=== PATIENT | male | born 1980 | race Caucasian/White ===

== ENCOUNTER 2017-04-12 18:42 | Emergency (ER) | payer OTHER ==
[~2017-04-12] VITALS: Ht 175.3 cm; Wt 88.0 kg
[~2017-04-12 18:42] MED LIST: ACET-1256 PO
[2017-04-12 18:50] VITALS: BP 137/79; PULSE 80; TEMP 36.6; O2SAT 99; Ht 175.3 cm; Wt 88.0 kg
[2017-04-12] MEDS ORDERED: CEPH500C PO (19:06)
--- NOTE | 2017-04-12 19:26 | EMERGENCY ROOM VISIT NOTE ---
History First contact with patient: 18:52 Chief Complaint: LACERATION/CUT (SUT/DERMABOND) Stated Complaint: TORE OPEN WOUND IN BACK, HAD MOLE REMOVED 3WKS AGO Nursing Triage Summary: pt reports 3 weeks ago had 2 moles removed from back . 1 has not healed completely and cont to drain serous sang drainage. denies increased pain History of Present Illness The patient is a 36 year old male who presents to the Emergency Room with complaints of an open wound on his back. The patient reports that he had two moles removed from his back 3 weeks ago at the [facility] in [place]. The patient reports that most of the sutures were removed in one week, and had the remaining single sutures removed from both wounds 12 days ago. The patient reports that the wound that is currently open has continued to have serosanguineous drainage since that time. The patient reports that he was scratching his back today because it was itchy, and his noticed that there was a hole. The patient reports that it has continued to drain, but has not noticed any purulent drainage. He has not noticed any redness around the site, and denies any pain. Review of Systems 10 system review was performed and was negative except for pertinent positives and negatives as indicated in history of present illness Past Medical/Surgical History Medical Problems: (1) Lumbago Surgical Problems: (1) History of cholecystectomy Family History No significant family history Social History Smoking Status: Never Smoker Alcohol Use: none Marital Status: Housing Status: lives with family Occupation Status: employed Current/Historical Medications Scheduled Cephalexin Monohydrate (Keflex), 500 MG PO QID Scheduled PRN Acetaminophen (Tylenol), 1,000 MG PO Q6H PRN for Headache or Pain Physical Exam Vital Signs Date Time Temp Pulse Resp B/P (MAP) Pulse Ox O2 Delivery O2 Flow Rate FiO2 04/12/17 18:50 36.6 80 20 137/79 99 Room Air Physical Exam CONSTITUTIONAL: Healthy and well nourished. Alert and oriented X 3 with positive affect. HEENT: Normocephalic, atraumatic. Pupils equal, round and reactive. NECK: Full active range of motion without discomfort. RESPIRATORY: Clear to auscultation bilaterally with no wheezing, crackles, rhonchi or stridor. CARDIOVASCULAR: Regular rate and rhythm with no murmurs, rubs or gallops. GASTROINTESTINAL: Bowel sounds present in all quadrants. Soft and nontender to palpation. MUSCULOSKELETAL: Patient has no tenderness to palpation through the lumbar paraspinous muscles or central thoracolumbar spine. INTEGUMENTARY: Examination shows a small 2 mm diameter wound opening over the left upper lumbar paraspinous region. There is no surrounding erythema or induration. No purulent or serous sanguinous drainage noted with attempted expression. The other surgical incision site on the right lumbar region is healing well. NEUROLOGIC: No focal neurologic deficits noted. Medical Decision & Procedures ED Course Patient history and physical exam were performed. Nurse's notes were reviewed. Vital signs were reviewed and were normal. Mentation shows a dehisced surgical wound that should otherwise heal well. The patient was advised that there does not appear to be any infection at the site I explained that attempting to close the wound with a suture is not recommended as it likely would not heal well anyway. Plus if there is any risk for internal infection, this can actually worsen the condition. I suggested allowing the wound to heal by secondary intention. The patient was in agreement. He was encouraged to keep the wound clean and covered. In case he does start to develop redness or purulent drainage, he was provided a written prescription for Keflex. The patient was instructed to follow-up with his electronic data processing auditor if the wound is not improving within the next week. The patient was happy with plan of care, voiced understanding of all discharge instructions, and denied any pain at the time of discharge. Medical Decision Medication Reconcilliation Current Medication List: was personally reviewed by me Blood Pressure Screening Patient's blood pressure: Normal blood pressure Impression Primary Impression: Surgical wound dehiscence Departure Information Dispostion Home / Self-Care Prescriptions Cephalexin Monohydrate (Keflex) 500 Mg Cap 500 MG PO QID for 7 Days, #28 CAP Prov: Daryl Christianson PA 04/12/17 Forms HOME CARE DOCUMENTATION FORM, IMPORTANT VISIT INFORMATION Patient Instructions My [facility] Additional Instructions The wound should heal from the inside out. Keep wound covered with an antibiotic ointment and dressing. If redness starts to develop at the opening or around the surgical site, start Keflex antibiotics as prescribed. Follow-up with your electronic data processing auditor if you do not notice any significant healing within the next week, or if redness develops or the wound gets larger. Problem Qualifiers Primary Impression: Surgical wound dehiscence Encounter type: initial encounter Qualified Codes: T81.31XA - Disruption of external operation (surgical) wound, not elsewhere classified, initial encounter
== END 2017-04-12 19:11 | disposition home or self-care (01) ==
LOC: C.EDB 18:43 → C.EDD 19:11
DX: T81.31XA Disruption of external operation (surgical) wound, not elsewhere classified, initial encounter (principal); Y83.8 Other surgical procedures as the cause of abnormal reaction of the patient, or of later complication, without mention of misadventure at the time of the procedure

== ENCOUNTER 2021-08-16 17:29 | Observation (INO) ==
--- NOTE | 2021-08-16 18:12 | Emergency Department Note ---
Impression & Plan Acute appendicitis, Abdominal pain, RLQ ED Provider Note NAME: OBED IVAN AGE: 40 SEX: M : 1980 ARRIVES VIA: Walk-In INFORMANT: Patient, ED PROVIDER(S): Chester Trujillo MD Chief Complaint: Abdominal pain HPI: Patient presents with concern for right lower quadrant pain which began yesterday and seemed to gradually subside but then returned today and got progressively worse throughout the day. The patient denies any fevers chills chest pains or shortness of breath. The patient denies any nausea or vomiting. No hematuria dysuria, hematochezia and the patient has had a recent bowel movement. Patient has had a prior cholecystectomy but no history of kidney stones or appendectomy. Patient did not take anything for symptoms at home. Patient denies any falls or trauma. Patient denies any fevers or chills. No recent heavy lifting twisting or turning. ROS: See HPI for pertinent positives and negatives. A total of 10 systems were reviewed and otherwise negative. Past medical history: See below Surgical history: See below Social history: See below Physical Exam: GENERAL: NAD, wearing a mask, non-toxic. EYE EXAM: Normal conjunctiva. PERRL, no anisocoria and EOM's grossly intact w/o pain. NECK: Supple, no nuchal rigidity, no adenopathy, non-tender. No signs of meningismus. LUNGS: Clear to auscultation. Normal chest wall mechanics. HEART: NSR, no MRG. ABDOMEN: Abdomen soft, right lower abdominal pain, negative obturators and psoas, normo-active bowel sounds, no masses, no rebound or guarding. BACK: No CVA TTP. SKIN: No rashes and no bruising. UPPER EXTREMITIES: Upper extremities are grossly normal. LOWER EXTREMITIES: Grossly normal, no edema. NEURO EXAM: A&O x3, cranial nerves II-XII grossly intact, normal speech, moves all 4 extremities on command w/o issue. Differential diagnoses: Appendicitis, testicular torsion, infections, diverticulitis, UTI, obstruction, mesenteric ischemia, aortic pathology, inflammatory bowel disease, renal colic, PUD, pancreatitis, biliary pathology, hernia, volvulus, constipation, as well as other pathologies. Course: Patient was seen and evaluated the bedside. Full history physical exam was performed. Imaging Studies: See Below Cardiac monitoring: An order was placed for continuous cardiac monitoring. The monitor shows a rate of 82 with sinus rhythm. MDM: Patient was seen for right lower quadrant pain. Blood work was obtained along with a CT abdomen pelvis. Patient declined any pain or nausea medication at this time. Patient has a normal white count H&H and platelet count. The patient's kidney function is unremarkable. Urinalysis does show scant blood but no signs of obvious infection. CT abdomen pelvis does show concern for acute early appendicitis. Dr. Rhodes with radiology did call me to inform me of the findings. I did with the on-call general surgeon Dr. Russell. COVID test was ordered along with Mefoxin. Patient was admitted to the general surgery service. Patient was taken to the operating room. Past Med/Surg History Medical History Back pain Surgical History H/O fasciotomy History of cholecystectomy History of wisdom tooth extraction Family History Other No pertinent family history in first degree relatives Social History Smoking Status: Never smoker Hx Substance Use: No Preferred Language: Mohawk Feels Safe at Home: Yes Allergies Allergies Allergy/AdvReac Type Severity Reaction Status Date / Time No Known Allergies Allergy Unverified 08/16/21 20:10 Home Meds Home Medications Medication Instructions Recorded Confirmed No Known Home Medications 08/16/21 08/16/21 Results & Data (ED) Vital Signs Vital Signs - 24 hr 08/16/21 17:35 08/16/21 18:40 08/16/21 19:47 Temperature 36.5 C Temperature Source Temporal Artery Scan Pulse Rate 98 H 84 Pulse Rate [Finger] 85 Respiratory Rate 17 18 18 Respiratory Effort / Characteristics Non-Labored Spontaneous Respiratory Depth Normal Respiratory Pattern Regular Blood Pressure 143/98 H Blood Pressure [Left Arm] 128/81 Blood Pressure Mean 113 Blood Pressure Mean [Left Arm] 96 Blood Pressure Position Sitting Blood Pressure Position [Left Arm] Pulse Oximetry 95 97 99 Oxygen Delivery Method Room Air Room Air Room Air Sepsis Recent Fever Within 48 Hours No Sepsis New/Unexplained Change in Mental Status N/A Sepsis Action Taken by Nursing No Action Required 08/16/21 21:47 Temperature Temperature Source Pulse Rate Pulse Rate [Finger] 82 Respiratory Rate 18 Respiratory Effort / Characteristics Respiratory Depth Respiratory Pattern Blood Pressure Blood Pressure [Left Arm] 143/87 H Blood Pressure Mean Blood Pressure Mean [Left Arm] 105 Blood Pressure Position Blood Pressure Position [Left Arm] Sitting Pulse Oximetry 97 Oxygen Delivery Method Room Air Sepsis Recent Fever Within 48 Hours Sepsis New/Unexplained Change in Mental Status Sepsis Action Taken by Skilled Nursing Medications Current Medication List: was personally reviewed by me Laboratory Data Attestation: I reviewed the patient's lab results. Result diagrams: 08/16/21 18:43 08/16/21 18:43 Lab Results 08/16/21 08/16/21 08/16/21 Range/Units 18:43 18:43 19:00 WBC 9.20 (4.8-10.8) K/uL RBC 5.21 (4.7-6.1) M/uL Hgb 14.7 (14.0-18.0) g/dL Hct 44.2 (42-52) % MCV 84.8 (80-100) fL MCH 28.2 (25-34) pg MCHC 33.3 (32-36) g/dL RDW Std Deviation 39.7 (36.4-46.3) fL RDW Coeff of Ivy 12.8 (11.5-14.5) % Plt Count 318 (130-400) K/uL MPV 10.4 (7.4-10.4) fL Immature Gran % (Auto) 0.3 % Neut % (Auto) 60.4 % Lymph % (Auto) 28.5 % [place] % (Auto) 8.7 % Eos % (Auto) 1.7 % Baso % (Auto) 0.4 % Neut # (Auto) 5.55 (1.4-6.5) K/uL Lymph # (Auto) 2.62 (1.2-3.4) K/uL [place] # (Auto) 0.80 H (0.11-0.59) K/uL Eos # (Auto) 0.16 (0-0.5) K/uL Baso # (Auto) 0.04 (0-0.2) K/uL Immature Gran # (Auto) 0.03 H (0.00-0.02) K/uL Sodium 139 (136-145) mmol/L Potassium 3.7 (3.5-5.1) mmol/L Chloride 105 (98-107) mmol/L Carbon Dioxide 28 (21-32) mmol/L Anion Gap 6 (3-11) BUN 18 (6-23) mg/dl Creatinine 0.98 (0.6-1.4) mg/dl Est Cr Clr Drug Dosing 122.4 ml/min Est GFR ( Amer) 112.9 ml/min Est GFR (Non-Af Amer) 97.4 ml/min BUN/Creatinine Ratio 18.4 (10-20) Glucose 103 H (70-99(Fasting)) mg/dl Calcium 9.2 (8.5-10.1) mg/dl Total Bilirubin 0.2 (0.2-1.0) mg/dl AST 21 (13-39) U/L ALT 27 (7-52) U/L Alkaline Phosphatase 95 (34-104) U/L Total Protein 7.2 (6.0-8.3) gm/dl Albumin 4.1 (3.4-5.0) gm/dl Globulin 3.1 (2.5-4.0) gm/dl Albumin/Globulin Ratio 1.3 (0.9-2) Lipase 46 (11-82) U/L Urine Color Yellow Urine Appearance Clear (Clear) Urine pH 6.5 (4.5-7.5) Ur Specific [place] 1.023 (1.000-1.030) Urine Protein Negative (Negative) Urine Glucose (UA) Negative (Negative) Urine Ketones Negative (Negative) Urine Blood 1+ H (Negative) Urine Nitrite Negative (Negative) Urine Bilirubin Negative (Negative) Urine Urobilinogen Negative (Negative) Ur Leukocyte Esterase Negative (Negative) Urine WBC (Auto) 1-5 (0-5) /hpf Urine RBC (Auto) 5-10 H (0-4) /hpf U Hyaline Cast (Auto) 1-5 (0-5) /lpf U Epithel Cells (Auto) 0-5 (0-5) /lpf Urine Bacteria (Auto) Negative (Negative) SARS-CoV-2, RNA, NAAT (NEGATIVE) 08/16/21 Range/Units 20:51 WBC (4.8-10.8) K/uL RBC (4.7-6.1) M/uL Hgb (14.0-18.0) g/dL Hct (42-52) % MCV (80-100) fL MCH (25-34) pg MCHC (32-36) g/dL RDW Std Deviation (36.4-46.3) fL RDW Coeff of Ivy (11.5-14.5) % Plt Count (130-400) K/uL MPV (7.4-10.4) fL Immature Gran % (Auto) % Neut % (Auto) % Lymph % (Auto) % [place] % (Auto) % Eos % (Auto) % Baso % (Auto) % Neut # (Auto) (1.4-6.5) K/uL Lymph # (Auto) (1.2-3.4) K/uL [place] # (Auto) (0.11-0.59) K/uL Eos # (Auto) (0-0.5) K/uL Baso # (Auto) (0-0.2) K/uL Immature Gran # (Auto) (0.00-0.02) K/uL Sodium (136-145) mmol/L Potassium (3.5-5.1) mmol/L Chloride (98-107) mmol/L Carbon Dioxide (21-32) mmol/L Anion Gap (3-11) BUN (6-23) mg/dl Creatinine (0.6-1.4) mg/dl Est Cr Clr Drug Dosing ml/min Est GFR ( Amer) ml/min Est GFR (Non-Af Amer) ml/min BUN/Creatinine Ratio (10-20) Glucose (70-99(Fasting)) mg/dl Calcium (8.5-10.1) mg/dl Total Bilirubin (0.2-1.0) mg/dl AST (13-39) U/L ALT (7-52) U/L Alkaline Phosphatase (34-104) U/L Total Protein (6.0-8.3) gm/dl Albumin (3.4-5.0) gm/dl Globulin (2.5-4.0) gm/dl Albumin/Globulin Ratio (0.9-2) Lipase (11-82) U/L Urine Color Urine Appearance (Clear) Urine pH (4.5-7.5) Ur Specific [place] (1.000-1.030) Urine Protein (Negative) Urine Glucose (UA) (Negative) Urine Ketones (Negative) Urine Blood (Negative) Urine Nitrite (Negative) Urine Bilirubin (Negative) Urine Urobilinogen (Negative) Ur Leukocyte Esterase (Negative) Urine WBC (Auto) (0-5) /hpf Urine RBC (Auto) (0-4) /hpf U Hyaline Cast (Auto) (0-5) /lpf U Epithel Cells (Auto) (0-5) /lpf Urine Bacteria (Auto) (Negative) SARS-CoV-2, RNA, NAAT NEGATIVE (NEGATIVE) Administered Medications Discontinued Medications Cefoxitin Sodium (Mefoxin) 2,000 mg in 60 mls @ 100 mls/hr IV NOW STA Stop: 08/16/21 20:48 Last Infusion: 08/16/21 20:58 Dose: 0 mls/hr Documented by: [id number] Admin: 08/16/21 20:21 Dose: 100 mls/hr Documented by: [id number] Ioversol (Optiray 320 100ml) 94 ml IV ONCE ONE Stop: 08/16/21 19:53 Last Admin: 08/16/21 19:53 Dose: 94 ml Documented by: [id number] Imaging Data Radiologist's Impression: Abdomen/Pelvis CT 08/16/21 18:31 CT OF THE ABDOMEN AND PELVIS WITH CONTRAST CLINICAL HISTORY: Right lower quadrant abdominal pain. COMPARISON STUDY: None. TECHNIQUE: Following IV administration of 94 mL of Optiray, axial images of the abdomen and pelvis were obtained from the lung bases to the proximal femurs. Images were reviewed in the axial, sagittal, and coronal planes. IV contrast was administered without complication. Automated exposure control was utilized for the study. A dose lowering technique was utilized adhering to the principles of ALARA. CT DOSE: 870.43 mGy.cm FINDINGS: Lung bases are unremarkable. No pneumatosis, free air or portal venous gas is present. There is no biliary ductal dilatation status post cholecystectomy. The liver, spleen, adrenal glands, kidneys and pancreas are unremarkable. There is no peripancreatic infiltration. There is no hydronephrosis. Sensitivity for detection of urinary calculi is diminished given excreted contrast. Mild mesenteric stranding is of doubtful significance. 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 There is no evidence for a bowel obstruction. The appendiceal tip is slightly dilated, measuring 8 mm in caliber. There is trace periappendiceal stranding. Colonic diverticulosis is noted without evidence for acute diverticulitis. There is no lymphadenopathy or ascites. No acute fracture or suspicious lesion within the visualized skeletal structures. Major vasculature is patent. IMPRESSION: Mildly dilated appendiceal tip with trace periappendiceal stranding. The findings are suggestive of early acute appendicitis. Findings discussed with Dr. Trujillo at time of dictation. ACT 112: Negative or not required by law. Electronically signed by: Ruy Rhodes M.D. 08/16/2021 8:16 PM Discharge Plan Visit Data Chief Complaint: Abdominal Pain Stated Complaint: RLQ ABDOMINAL PAIN ED Provider: Chester Trujillo Discharge Problem: Acute appendicitis, Abdominal pain, RLQ Patient Disposition: Admitted As Inpatient Discharge Instructions Interventions: ED Discharge Assessment Last Done: 08/16/21 22:04
[2021-08-16 18:58] LABS: Basophils # (auto) 0.04 K/uL (0-0.2); Basophils % (auto) 0.4 %; Eosinophils # (auto) 0.16 K/uL (0-0.5); Eosinophils % (auto) 1.7 %; Hematocrit (blood only) 44.2 % (42-52); Hemoglobin 14.7 g/dL (14.0-18.0); Immature Granulocytes # (auto) 0.03 K/uL (0.00-0.02); Immature Granulocytes % (auto) 0.3 %; Lymphocytes # (auto) 2.62 K/uL (1.2-3.4); Lymphocytes % (auto) 28.5 %; Mean Corpuscular Hemoglobin 28.2 pg (25-34); Mean Corpuscular Hgb Conc 33.3 g/dL (32-36); Mean Corpuscular Volume 84.8 fL (80-100); Mean Platelet Volume 10.4 fL (7.4-10.4); Monocytes % (auto) 8.7 %; Neutrophils # (auto) 5.55 K/uL (1.4-6.5); Neutrophils % (auto) 60.4 %; Platelet Count 318 K/uL (130-400); RDW Coefficient of Variation 12.8 % (11.5-14.5); RDW Standard Deviation 39.7 fL (36.4-46.3); Red Blood Count 5.21 M/uL (4.7-6.1)
[2021-08-16 19:21] LABS: Appearance Urine Clear (Clear); Bacteria Urine Automated Negative (Negative); Bilirubin Urine Negative (Negative); Blood Urine 1+ (Negative); Color Urine Yellow; Epithelial Cell Urine Auto 0-5 /lpf (0-5); Glucose Urine UA Negative (Negative); Ketones Urine Negative (Negative); Leukocyte Esterase Urine Negative (Negative); Nitrite Urine Negative (Negative); Protein Urine Negative (Negative); Specific Gravity Urine 1.023 (1.000-1.030); Urobilinogen Urine Negative (Negative); pH Urine 6.5 (4.5-7.5)
[2021-08-16 19:28] LABS: Albumin Globulin Ratio 1.3 (0.9-2); Albumin Level 4.1 gm/dl (3.4-5.0); BUN Creatinine Ratio 18.4 (10-20); Bilirubin,Total 0.2 mg/dl (0.2-1.0); Calcium 9.2 mg/dl (8.5-10.1); Creatinine Clr Calc Pharmacy 122.4 ml/min; Est GFR (African American) 112.9 ml/min; Est GFR (Non-African American) 97.4 ml/min; Globulin 3.1 gm/dl (2.5-4.0); Potassium 3.7 mmol/L (3.5-5.1); Total Protein 7.2 gm/dl (6.0-8.3)
[2021-08-16] MEDS ORDERED: OPTIRAY 320 100ml IV ONE (19:52)
[2021-08-16] MEDS ORDERED: cefOXitin 2,000 MG/60 ML BAG IV STA (20:13)
--- NOTE | 2021-08-16 20:19 | CT Scan Report ---
CT OF THE ABDOMEN AND PELVIS WITH CONTRAST CLINICAL HISTORY: Right lower quadrant abdominal pain. COMPARISON STUDY: None. TECHNIQUE: Following IV administration of 94 mL of Optiray, axial images of the abdomen and pelvis we re obtained from the lung bases to the proximal femurs. Images were reviewed in the axial, sagittal, and coronal planes. IV contrast was administered without complication. Automated exposure control wa s utilized for the study. A dose lowering technique was utilized adhering to the principles of ALARA . CT DOSE: 870.43 mGy.cm FINDINGS: Lung bases are unremarkable. No pneumatosis, free air or portal venous gas is present. Ther e is no biliary ductal dilatation status post cholecystectomy. The liver, spleen, adrenal glands, kid neys and pancreas are unremarkable. There is no peripancreatic infiltration. There is no hydronephros is. Sensitivity for detection of urinary calculi is diminished given excreted contrast. Mild mesenter ic stranding is of doubtful significance. 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 There is no evide nce for a bowel obstruction. The appendiceal tip is slightly dilated, measuring 8 mm in caliber. Ther e is trace periappendiceal stranding. Colonic diverticulosis is noted without evidence for acute dive rticulitis. There is no lymphadenopathy or ascites. No acute fracture or suspicious lesion within the visualized skeletal structures. Major vasculature is patent. IMPRESSION: Mildly dilated appendiceal tip with trace periappendiceal stranding. The findings are sug gestive of early acute appendicitis. Findings discussed with Dr. Trujillo at time of dictation. ACT 112: Negative or not required by law. Electronically signed by: Ruy Rhodes M.D. 08/16/2021 8:16 PM
--- NOTE | 2021-08-16 21:29 | History & Physical Report ---
Date of Service August 16, 2021 Assessment & Plan (1) Acute appendicitis: Plan: 40-year-old gentleman presents with acute appendicitis. We discussed the risks and benefits of a laparoscopic appendectomy, possible open. We discussed the postoperative and recovery period as well as restrictions. All his questions were answered, he is agreeable to proceed. We have obtained consent. We will take him to the operating room for laparoscopic appendectomy at the earliest convenience. History of Present Illness Primary Care Provider: [facility] 40-year-old gentleman presents with a 2-day history of right lower quadrant pain. It began towards the middle of his abdomen and radiated down to the right side. It is a dull aching pain punctuated by sharper pain intermittently. He denies nausea or vomiting. He denies changes in bowel habits. He last ate at 2 PM today. He denies fevers or chills. He has had a prior cholecystectomy. He has migraines. He denies chest pain or shortness of breath. White blood cell count is 9. CT scan demonstrates early acute appendicitis. Allergies Allergy/AdvReac Type Severity Reaction Status Date / Time No Known Allergies Allergy Unverified 08/16/21 20:10 Home Medications Medication Instructions Recorded Confirmed Type No Known Home Medications 08/16/21 08/16/21 History Past Med/Surg History Medical History Back pain Surgical History H/O fasciotomy History of cholecystectomy History of wisdom tooth extraction Family History Other No pertinent family history in first degree relatives Social History Smoking Status: Never smoker Hx Substance Use: No Preferred Language: [place] Feels Safe at Home: Yes Review of Systems Review of Systems: All systems reviewed & are unremarkable except as noted in HPI & below Physical Exam Constitutional: WD/WN, vitals as above Neck: trachea midline, no thyromegaly Respiratory: normal respiratory effort; no respiratory distress and no labored breathing Cardiovascular: Rate/Rhythm: regular rate and regular rhythm Gastrointestinal (Abdomen): Inspection/Auscultation: abdomen normal to inspection; abdomen not distended Percussion/Palpation: + abdomen tender (Right lower quadrant) and abdomen soft; no guarding and abdomen not rigid Musculoskeletal: Extremities: no cyanosis and no clubbing Skin: no rashes, warm and dry Psychiatric: A+Ox3, euthymic affect Results & Data Results & Data ([facility]) Vital Signs (Past 12 Hours) Vital Signs Temp Pulse Pulse Resp BP BP Pulse Ox 08/16/21 19:47 85 18 128/81 99 08/16/21 18:40 84 18 97 08/16/21 17:35 36.5 C 98 H 17 143/98 H 95 Laboratory Results 08/16/21 08/16/21 08/16/21 Range/Units 20:51 19:00 18:43 WBC (4.8-10.8) K/uL RBC (4.7-6.1) M/uL Hgb (14.0-18.0) g/dL Hct (42-52) % MCV (80-100) fL MCH (25-34) pg MCHC (32-36) g/dL RDW Std Deviation (36.4-46.3) fL RDW Coeff of Ivy (11.5-14.5) % Plt Count (130-400) K/uL MPV (7.4-10.4) fL Immature Gran % (Auto) % Neut % (Auto) % Lymph % (Auto) % [place] % (Auto) % Eos % (Auto) % Baso % (Auto) % Neut # (Auto) (1.4-6.5) K/uL Lymph # (Auto) (1.2-3.4) K/uL [place] # (Auto) (0.11-0.59) K/uL Eos # (Auto) (0-0.5) K/uL Baso # (Auto) (0-0.2) K/uL Immature Gran # (Auto) (0.00-0.02) K/uL Sodium 139 (136-145) mmol/L Potassium 3.7 (3.5-5.1) mmol/L Chloride 105 (98-107) mmol/L Carbon Dioxide 28 (21-32) mmol/L Anion Gap 6 (3-11) BUN 18 (6-23) mg/dl Creatinine 0.98 (0.6-1.4) mg/dl Est Cr Clr Drug Dosing 122.4 ml/min Est GFR ( Amer) 112.9 ml/min Est GFR (Non-Af Amer) 97.4 ml/min BUN/Creatinine Ratio 18.4 (10-20) Glucose 103 H (70-99(Fasting)) mg/dl Calcium 9.2 (8.5-10.1) mg/dl Total Bilirubin 0.2 (0.2-1.0) mg/dl AST 21 (13-39) U/L ALT 27 (7-52) U/L Alkaline Phosphatase 95 (34-104) U/L Total Protein 7.2 (6.0-8.3) gm/dl Albumin 4.1 (3.4-5.0) gm/dl Globulin 3.1 (2.5-4.0) gm/dl Albumin/Globulin Ratio 1.3 (0.9-2) Lipase 46 (11-82) U/L Urine Color Yellow Urine Appearance Clear (Clear) Urine pH 6.5 (4.5-7.5) Ur Specific [place] 1.023 (1.000-1.030) Urine Protein Negative (Negative) Urine Glucose (UA) Negative (Negative) Urine Ketones Negative (Negative) Urine Blood 1+ H (Negative) Urine Nitrite Negative (Negative) Urine Bilirubin Negative (Negative) Urine Urobilinogen Negative (Negative) Ur Leukocyte Esterase Negative (Negative) Urine WBC (Auto) 1-5 (0-5) /hpf Urine RBC (Auto) 5-10 H (0-4) /hpf U Hyaline Cast (Auto) 1-5 (0-5) /lpf U Epithel Cells (Auto) 0-5 (0-5) /lpf Urine Bacteria (Auto) Negative (Negative) SARS-CoV-2, RNA, NAAT NEGATIVE (NEGATIVE) 08/16/21 Range/Units 18:43 WBC 9.20 (4.8-10.8) K/uL RBC 5.21 (4.7-6.1) M/uL Hgb 14.7 (14.0-18.0) g/dL Hct 44.2 (42-52) % MCV 84.8 (80-100) fL MCH 28.2 (25-34) pg MCHC 33.3 (32-36) g/dL RDW Std Deviation 39.7 (36.4-46.3) fL RDW Coeff of Ivy 12.8 (11.5-14.5) % Plt Count 318 (130-400) K/uL MPV 10.4 (7.4-10.4) fL Immature Gran % (Auto) 0.3 % Neut % (Auto) 60.4 % Lymph % (Auto) 28.5 % [place] % (Auto) 8.7 % Eos % (Auto) 1.7 % Baso % (Auto) 0.4 % Neut # (Auto) 5.55 (1.4-6.5) K/uL Lymph # (Auto) 2.62 (1.2-3.4) K/uL [place] # (Auto) 0.80 H (0.11-0.59) K/uL Eos # (Auto) 0.16 (0-0.5) K/uL Baso # (Auto) 0.04 (0-0.2) K/uL Immature Gran # (Auto) 0.03 H (0.00-0.02) K/uL Sodium (136-145) mmol/L Potassium (3.5-5.1) mmol/L Chloride (98-107) mmol/L Carbon Dioxide (21-32) mmol/L Anion Gap (3-11) BUN (6-23) mg/dl Creatinine (0.6-1.4) mg/dl Est Cr Clr Drug Dosing ml/min Est GFR ( Amer) ml/min Est GFR (Non-Af Amer) ml/min BUN/Creatinine Ratio (10-20) Glucose (70-99(Fasting)) mg/dl Calcium (8.5-10.1) mg/dl Total Bilirubin (0.2-1.0) mg/dl AST (13-39) U/L ALT (7-52) U/L Alkaline Phosphatase (34-104) U/L Total Protein (6.0-8.3) gm/dl Albumin (3.4-5.0) gm/dl Globulin (2.5-4.0) gm/dl Albumin/Globulin Ratio (0.9-2) Lipase (11-82) U/L Urine Color Urine Appearance (Clear) Urine pH (4.5-7.5) Ur Specific [place] (1.000-1.030) Urine Protein (Negative) Urine Glucose (UA) (Negative) Urine Ketones (Negative) Urine Blood (Negative) Urine Nitrite (Negative) Urine Bilirubin (Negative) Urine Urobilinogen (Negative) Ur Leukocyte Esterase (Negative) Urine WBC (Auto) (0-5) /hpf Urine RBC (Auto) (0-4) /hpf U Hyaline Cast (Auto) (0-5) /lpf U Epithel Cells (Auto) (0-5) /lpf Urine Bacteria (Auto) (Negative) SARS-CoV-2, RNA, NAAT (NEGATIVE) Diagnostic Findings CT OF THE ABDOMEN AND PELVIS WITH CONTRAST CLINICAL HISTORY: Right lower quadrant abdominal pain. COMPARISON STUDY: None. TECHNIQUE: Following IV administration of 94 mL of Optiray, axial images of the abdomen and pelvis were obtained from the lung bases to the proximal femurs. Images were reviewed in the axial, sagittal, and coronal planes. IV contrast was administered without complication. Automated exposure control was utilized for the study. A dose lowering technique was utilized adhering to the principles of ALARA. CT DOSE: 870.43 mGy.cm FINDINGS: Lung bases are unremarkable. No pneumatosis, free air or portal venous gas is present. There is no biliary ductal dilatation status post cholecystectomy. The liver, spleen, adrenal glands, kidneys and pancreas are unremarkable. There is no peripancreatic infiltration. There is no hydronephrosis. Sensitivity for detection of urinary calculi is diminished given excreted contrast. Mild mesenteric stranding is of doubtful significance. 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 There is no evidence for a bowel obstruction. The appendiceal tip is slightly dilated, measuring 8 mm in caliber. There is trace periappendiceal stranding. Colonic diverticulosis is noted without evidence for acute diverticulitis. There is no lymphadenopathy or ascites. No acute fracture or suspicious lesion within the visualized skeletal structures. Major vasculature is patent. IMPRESSION: Mildly dilated appendiceal tip with trace periappendiceal stranding. The findings are suggestive of early acute appendicitis. Findings discussed with Dr. Trujillo at time of dictation.
[2021-08-16] MEDS ORDERED: BUPIVACAINE 0.5 % 5 MG/1 ML MPF 30ML VIAL ONE (21:41)
[2021-08-16] MEDS ORDERED: EPINEPHrine INJ 1 MG/ML AMP ONE (22:00)
[2021-08-16] MEDS ORDERED: MIDAZOLAM HCL 1 MG/ML 2ML VIAL ONE (23:21)
[2021-08-16] MEDS ORDERED: fentaNYL citrate 100 MCG/2 ML VIAL ONE (23:21)
--- NOTE | 2021-08-16 23:31 | Anesthesiology Consultation ---
Date of Service August 16, 2021 Assessment & Plan (1) Encounter for pre-operative examination: Chart Review Chart Review: Acceptable Risk for Surgery History Surgery Operation Date: 08/16/21 21:15 Proposed Procedures p Laparoscopic Appendectomy - Gonzales Russell MD Height/Weight Height: 5 ft 9 in Weight: 105.7 kg Allergies Allergy/AdvReac Type Severity Reaction Status Date / Time No Known Allergies Allergy Unverified 08/16/21 20:10 Medications Home Medications Medication Instructions Recorded Confirmed Last Taken No Known Home Medications 08/16/21 08/16/21 Unknown NPO Date Last Intake of Fluids: 08/16/21 Time Last Intake of Fluids: 17:00 Last Intake of Fluids Comment: gatorade Date Last Intake of Solids: 08/16/21 Time Last Intake of Solids: 14:00 Last Intake of Solids Comment: 2 bratwurst Past Medical History Medical History Back pain Past Family History Family History Other No pertinent family history in first degree relatives Past Surgical History Surgical History H/O fasciotomy History of cholecystectomy History of wisdom tooth extraction History of PONV No Hx of PONV and No Hx of Motion Sickness Social History Smoking Status: Never smoker Hx Substance Use: No Physical Exam Vital Signs Last Vital Signs Temp 36.5 C 08/16/21 17:35 Pulse 82 08/16/21 21:47 Resp 18 08/16/21 21:47 BP 143/87 H 08/16/21 21:47 Pulse Ox 97 08/16/21 21:47 Testing Laboratory Results 08/16/21 18:43 08/16/21 18:43 Urine Color Yellow 08/16/21 19:00 Urine Appearance Clear (Clear) 08/16/21 19:00 Urine pH 6.5 (4.5-7.5) 08/16/21 19:00 Ur Specific [place] 1.023 (1.000-1.030) 08/16/21 19:00 Urine Protein Negative (Negative) 08/16/21 19:00 Urine Glucose (UA) Negative (Negative) 08/16/21 19:00 Urine Ketones Negative (Negative) 08/16/21 19:00 Urine Nitrite Negative (Negative) 08/16/21 19:00 Ur Leukocyte Esterase Negative (Negative) 08/16/21 19:00 Urine WBC (Auto) 1-5 /hpf (0-5) 08/16/21 19:00 Urine RBC (Auto) 5-10 /hpf (0-4) H 08/16/21 19:00 U Hyaline Cast (Auto) 1-5 /lpf (0-5) 08/16/21 19:00 U Epithel Cells (Auto) 0-5 /lpf (0-5) 08/16/21 19:00 Urine Bacteria (Auto) Negative (Negative) 08/16/21 19:00
[2021-08-17] MEDS ORDERED: LABETALOL HCL IV 5 MG/ML 20ML IV PRN (00:07)
[2021-08-17] MEDS ORDERED: ONDANSETRON INJ 2 MG/ML 2 ML VIAL IV PRN ×2 (00:07→01:41)
[2021-08-17] MEDS ORDERED: PROMETHAZINE HCL 12.5 MG in SODIUM CHLORIDE 0.9% 50 ML IV PRN ×2 (00:07→01:41)
[2021-08-17] MEDS ORDERED: KETOROLAC 30 MG/ML VIAL IV PRN ×2 (00:07→01:41)
[2021-08-17] MEDS ORDERED: ATROPINE SULFATE 0.1 MG/ML 10ML SYR IV PRN (00:07)
--- NOTE | 2021-08-17 00:27 | Post Operative Brief Note ---
Immediate Post Op Note v1 Date of Surgery August 17, 2021 Pre & Post Diagnosis Operation Date: 08/16/21 21:15 Pre-Op Diagnosis: Acute appendicitis Post-Op Diagnosis: Acute appendicitis I identified the patient and participated in the time-out.: Yes Procedure Operation Date: 08/16/21 21:15 Actual Procedures p Laparoscopic Appendectomy(Not Applicable) - Gonzales Russell MD Surgeon Gonzales Russell MD Chief Contract Officer None Estimated Blood Loss 5 Findings Consistent with Post-Op Diagnosis
--- NOTE | 2021-08-17 00:28 | Operative Report ---
Post Operative Report Pre & Post Diagnosis Operation Date: 08/16/21 21:15 Pre-Op Diagnosis: Acute appendicitis Post-Op Diagnosis: Acute appendicitis I identified the patient and participated in the time-out.: Yes Procedure Operation Date: 08/16/21 21:15 Actual Procedures p Laparoscopic Appendectomy(Not Applicable) - Gonzales Russell MD Surgeon Gonzales Russell MD Rock Crusher None Estimated Blood Loss 5 Findings Consistent with Post-Op Diagnosis Acute appendicitis, retrocecal Specimens Appendix Anesthesia Type General Complications No immediate complications Description of Procedure The patient was taken to the operating room, and placed supine on the operating table. A timeout was performed, perioperative antibiotics were administered, SCD boots were placed. After adequate anesthesia and analgesia was obtained, the abdomen was prepped and draped in the normal sterile fashion. A 1 cm incision was made in the supraumbilical region and carried down to the level of the fascia. A trach hook was used to grasp the fascia and elevated and a varies needle was used to enter the abdominal cavity. The abdomen was insufflated to a pressure of 15 mmHg, and a 5 mm trocar was placed in this location. A 5 mm 30 degree laparoscope was placed into the abdominal cavity, and the abdomen was surveyed. The patient was placed in Trendelenburg and slightly to the left. One 5 mm trocar was placed in the right upper quadrant, and one 12 mm trocar was placed in the left lower quadrant under direct visualization. The right colon was identified and traced down to the cecum. The appendix was identified and elevated anteriorly and medially. A window was created at the base of the appendix with a [place] dissector. The Endo FLORY stapler was used to transect the appendix at its base through noninflamed tissue, and subsequently the mesoappendix. The appendix was placed in an Endo Catch bag, and removed via the left lower quadrant port site. Attention was turned to hemostasis, which was excellent. The abdomen was copiously irrigated and suctioned free, and again hemostasis was found to be excellent. All trochars removed under direct visualization. The abdomen was desufflated. The fascia in the 12 mm port site was closed with a 0 Vicryl suture. The skin was closed with a running 4-0 Monocryl subcuticular stitch. Dermabond was applied. The patient tolerated the procedure without complication, and was transferred in stable condition to the PACU. All instrument, needle, and sponge counts were correct at the end of the case. I attest to the content of the Intraoperative Record and any orders documented therein. Any exceptions are noted below.
[2021-08-17] MEDS ORDERED: NEOSTIGMINE METHYLSULFATE 1 MG/ML 10ML VIAL ONE (00:39)
[2021-08-17] MEDS ORDERED: LIDOCAINE 2% 2 ML VIAL/AMP(20MG/ML) INFIL ONE (00:39)
[2021-08-17] MEDS ORDERED: ONDANSETRON INJ 2 MG/ML 2 ML VIAL ONE (00:39)
[2021-08-17] MEDS ORDERED: METOCLOPRAMIDE HCL INJ 5 MG/ML 2 ML VIAL ONE (00:39)
[2021-08-17] MEDS ORDERED: PROPOFOL IV EMULSION 10 MG/ML 20 ML VIAL IV ONE (00:39)
[2021-08-17] MEDS ORDERED: GLYCOPYRROLATE 0.2 MG/ML VIAL ONE (00:39)
[2021-08-17] MEDS ORDERED: fentaNYL citrate 100 MCG/2 ML VIAL ONE (00:46)
[2021-08-17] MEDS: fentaNYL citrate 100 MCG/2 ML VIAL IV PRN ×4 (00:48→01:04)
--- NOTE | 2021-08-17 01:14 | Anesthesiology Progress Note ---
Date of Service August 17, 2021 Anesthesia Post Procedure Vital Signs Vital Signs: Temp Pulse Pulse Pulse Resp BP BP 08/17/21 01:10 36.1 C L 83 18 123/87 08/17/21 01:00 69 15 144/90 H 08/17/21 00:50 66 12 132/95 08/17/21 00:43 36.1 C L 71 20 158/98 H 08/16/21 21:47 82 18 143/87 H 08/16/21 19:47 85 18 128/81 08/16/21 18:40 84 18 08/16/21 17:35 36.5 C 98 H 17 143/98 H Pulse Ox 08/17/21 01:10 95 08/17/21 01:00 95 08/17/21 00:50 95 08/17/21 00:43 95 08/16/21 21:47 97 08/16/21 19:47 99 08/16/21 18:40 97 08/16/21 17:35 95 Pain Intensity Abdomen: Pain Intensity: 3 Transfer of Care Handoff Completed per policy Notes Mental Status: alert / awake / arousable Patient Amnestic to Procedure: Yes Nausea / Vomiting: adequately controlled Pain: adequately controlled Airway Patency, RR, SpO2: stable & adequate BP & HR: stable & adequate Hydration State: stable & adequate Anesthetic Complications: no major complications apparent
[2021-08-17] MEDS ORDERED: KETOROLAC 30 MG/ML VIAL ONE (01:29)
[2021-08-17] MEDS ORDERED: MoRPHine SULFATE 2 MG/ML CARP IV PRN (01:41)
[2021-08-17] MEDS ORDERED: diphenhydrAMINE Capsule 25 MG CAP PO PRN (01:41)
[2021-08-17] MEDS ORDERED: LACTATED RINGER'S 1,000 ML IV SCH (01:41)
[2021-08-17] MEDS ORDERED: oxyCODONE/ACETAMINOPHEN 5mg/325mg TAB PO PRN (01:41)
--- NOTE | 2021-08-17 10:34 | Surgery Progress Note ---
Date of Service August 17, 2021 Assessment & Plan (1) Acute appendicitis: Plan: Doing well postop day 1. Advance diet as tolerated. Out of bed ambulating. Probable home later on today. Admission and Anticipated Discharge Date Admission Date: August 17, 2021 Subjective Postop day 1 status post lap appendectomy, doing fairly well. Denies nausea or vomiting. Tolerating clears. Some pain. Physical Exam Constitutional: WD/WN, vitals as above Gastrointestinal (Abdomen): Inspection/Auscultation: abdomen normal to inspection, + abdomen distended (Mild) and + abdominal surgical incision (No erythema or discharge, Dermabond in place) Percussion/Palpation: + abdomen tender (Incisional and right lower quadrant) and abdomen soft; no guarding and abdomen not rigid Skin: no rashes, warm and dry Psychiatric: A+Ox3, euthymic affect Results & Data ([facility]) Vital Signs (Past 12 Hours) Vital Signs Temp Pulse Pulse Resp BP Pulse Ox 08/17/21 07:19 36.3 C L 72 18 111/68 96 08/17/21 04:40 36.4 C L 70 16 114/71 94 08/17/21 03:47 36.8 C 71 20 103/64 94 08/17/21 02:40 36.5 C 83 18 109/70 94 08/17/21 02:10 36.4 C L 79 16 100/63 95 08/17/21 01:40 36.5 C 77 16 132/84 96 08/17/21 01:20 77 16 109/81 94 08/17/21 01:10 36.1 C L 83 18 123/87 95 08/17/21 01:00 69 15 144/90 H 95 08/17/21 00:50 66 12 132/95 95 08/17/21 00:43 36.1 C L 71 20 158/98 H 95 (1) Acute appendicitis Acute appendicitis type: with localized peritonitis Appendicitis abscess presence: without abscess Appendicitis gangrene presence: without gangrene Appendicitis perforation presence: without perforation Qualified Code(s): K35.30 - Acute appendicitis with localized peritonitis, without perforation or gangrene
[2021-08-18] MEDS ORDERED: ENOXAPARIN INJ 40 MG/0.4 ML SYR SQ SCH (02:00)
--- NOTE | 2021-08-19 13:18 | Discharge Summary ---
Date of Service August 19, 2021 Admission HPI Per Admitting Provider 40-year-old gentleman presents with a 2-day history of right lower quadrant pain. It began towards the middle of his abdomen and radiated down to the right side. It is a dull aching pain punctuated by sharper pain intermittently. He denies nausea or vomiting. He denies changes in bowel habits. He last ate at 2 PM today. He denies fevers or chills. He has had a prior cholecystectomy. He has migraines. He denies chest pain or shortness of breath. White blood cell count is 9. CT scan demonstrates early acute appendicitis. Principal Diagnosis Acute appendicitis Discharge Exam Constitutional WD/WN, vitals as above Neck trachea midline, no thyromegaly Respiratory normal respiratory effort; no respiratory distress and no labored breathing Cardiovascular Rate/Rhythm: regular rate and regular rhythm Gastrointestinal (Abdomen) Inspection/Auscultation: abdomen normal to inspection, + abdomen distended (Mild) and + abdominal surgical incision (No erythema or discharge, Dermabond in place) Percussion/Palpation: + abdomen tender (Incisional and right lower quadrant) and abdomen soft; no guarding and abdomen not rigid Musculoskeletal Extremities: no cyanosis and no clubbing Skin no rashes, warm and dry Psychiatric A+Ox3, euthymic affect Discharge Data Allergies Allergy/AdvReac Type Severity Reaction Status Date / Time No Known Allergies Allergy Unverified 08/16/21 20:10 Consultations 08/16/21 20:39 ED Decision to Admit Stat Procedures Performed Operation Date: 08/16/21 21:15 Actual Procedures p Laparoscopic Appendectomy(Not Applicable) - Gonzales Russell MD Ordered Studies 08/16/21 18:31 CT abd pelvis IV con only Stat Hospital Course (1) Acute appendicitis: He was seen in the emergency department and taken to the operating room for laparoscopic appendectomy, the details of which are dictated in a separate operative note. Postoperatively he did well and was transferred in stable condition to the PACU and subsequently to the floor. DVT prophylaxis was maintained with SCD boots and Lovenox subcu. Early ambulation and incentive spirometry were encouraged for pulmonary toilet. Diet was advanced as tolerated. By the day of discharge, he was tolerating regular diet, not requiring any IV narcotic pain medications, and he was discharged home in stable condition. He will follow-up in clinic in 2 weeks. Total Time Total Time Spent Total Time Spent (In Minutes): 30 minutes Discharge Plan Discharge Items Patient Disposition: Home - Self-Care Reason For Visit: ACUTE APPENDICITIS Discharge Diagnosis: Acute appendicitis Activity: Per Instructions section Bathing: May shower/bathe in 3 days Driving/Machine Use: Resume 3 days after discharge Non-emergency contact: Surgeon Call non-emergency contact if: you have any medication questions, your symptoms worsen, your pain is not controlled, your pain is unusual for you, your pain is concerning for you, your temperature is above 101.5, your wound has increased redness, your wound has increased drainage and your wound pain has increased Follow-up/Referrals: PCP,NO [Physician] - Diet: Regular Addtl Attending Provider Instructions: Post-Surgical ~Discharge Instructions Activity Recommendations: - lifting limitation: (10 pounds for 2 weeks), - exercise/sex/sports limit: (nonstrenuous for 2 weeks), - driving or machine use limit: (none for 1 week), - Shower/bathe limit: (may shower beginning tomorrow) Diet: - Resume previous diet SPECIAL CARE INSTRUCTIONS: - May shower in 24 hours. Let water run over area and pat dry. - Leave steri strips on for one week. - Call the surgeon's office with any questions or concerns - - (ex. temperature higher than 101 degrees F, excessive bleeding or pain). MEDICATIONS: - Resume previous medications unless instructed otherwise by your surgeon. - Ibuprofen 600 mg every 6 hours with food - Percocet 1 every 4 hours, as needed for pain FOLLOW UP VISIT: - If not already scheduled, please call the office to schedule a two week follow-up appointment. Office number Pending Studies at Discharge: No Stand-Alone Forms: [employer], Smoking Cessation Medications and DC Order Prescriptions: New oxycodone-acetaminophen [Percocet] 5-325 mg tablet 1 tab PO Q6H PRN (Reason: pain) Qty: 10 RF: 0 Discharge Orders: Discharge Order (Routine); Ordered 08/17/21 Ordered By: Gonzales Mcmanus/Other Patient Handouts: Appendectomy Lap Dc Admission Data Admit Date/Time: 08/17/21 00:30 Attending Provider: Gonzales Russell Admit Provider: Gonzales Russell Primary Care Provider: [facility] Other Providers: Gonzales Russell ; [facility] Other Interventions: Discharge Summary Assessment (RN) Last Done: 08/17/21 11:55
== END 2021-08-17 14:30 | disposition home or self-care (01) ==
LOC: ED 17:29 → 3N 22:05 → OR 22:18
DX: K35.80 Unspecified acute appendicitis